=== PATIENT | male | born 1985 | race Caucasian/White ===

== ENCOUNTER → 2022-01-30 | Outpatient (REF) | payer OTHER, MEDICAID | LOC: M LAB REF 14:48 | PROVIDERS: ATTEND Surgery | DX: L72.11 Pilar cyst (principal) ==

== ENCOUNTER 2023-08-22 01:10 | Inpatient (IN) | payer MEDICAID, OTHER ==
[~2023-08-22] VITALS: Ht 180.3 cm; Wt 87.2 kg
[2023-08-22 02:03] LABS: HEMOGLOBIN 15.6 g/dl (13.5-17.5); MEAN CORPUSCULAR HEMOGLOBIN 29.5 pg (27.0-33.0); MEAN CORPUSCULAR HGB CONC 34.7 g/dl (32.0-36.5); MEAN CORPUSCULAR VOLUME 85.1 fl (80.0-96.0); PLATELET COUNT, AUTOMATED 265 10^3/uL (150-450); RED BLOOD COUNT 5.29 10^6/uL (4.30-6.10); WHITE BLOOD COUNT 14.4 10^3/uL (4.0-10.0)
[2023-08-22 02:15] LABS: AMPHETAMINES LEVEL URINE NEGATIVE (NEGATIVE); BARBITURATES URINE NEGATIVE (NEGATIVE); BENZODIAZEPINES URINE NEGATIVE (NEGATIVE); COCAINE METABOLITE URINE NEGATIVE (NEGATIVE); METHADONE URINE NEGATIVE (NEGATIVE); OPIATES URINE NEGATIVE (NEGATIVE); PHENCYCLIDINE URINE NEGATIVE (NEGATIVE)
[2023-08-22 02:17] LABS: ETHYL ALCOHOL (ETHANOL) < 0.003 % (0.000-0.010)
[2023-08-22 02:19] LABS: ALBUMIN 4.8 G/DL (3.2-5.2); ALKALINE PHOSPHATASE 99 U/L (46-116); ALT/SGPT 67 U/L (7.0-40); AST/SGOT 141 U/L (<34); BILIRUBIN,DIRECT 0.5 MG/DL (<0.4); BILIRUBIN,TOTAL 1.3 MG/DL (0.3-1.2); BLOOD UREA NITROGEN 15 MG/DL (9-23); CALCIUM LEVEL 9.6 MG/DL (8.5-10.1); CARBON DIOXIDE LEVEL 24 MMOL/L (20-31); CHLORIDE LEVEL 106 MMOL/L (98-107); CREATININE FOR GFR 0.94 MG/DL (0.70-1.30); GLOMERULAR FILTRATION RATE > 60.0 (>60); GLUCOSE, FASTING 92 MG/DL (60-100); POTASSIUM SERUM 3.8 MMOL/L (3.5-5.1); SALICYLATE LEVEL < 3.0 MG/DL (<30); SODIUM LEVEL 139 MMOL/L (136-145); TOTAL PROTEIN 7.4 G/DL (5.7-8.2)
[2023-08-22 02:21] LABS: THYROID STIMULATING HORMONE 1.319 uIU/ML (0.55-4.78)
[2023-08-22 02:30] LABS: CANNABINOIDS URINE POSITIVE (NEGATIVE)
[2023-08-22] MEDS ORDERED: OMEP40CA5 PO (04:39)
[2023-08-22] MEDS ORDERED: BREO1INH INH (04:39)
[2023-08-22] MEDS ORDERED: ALBU8.5H INH (04:39)
[2023-08-22] MEDS ORDERED: MONT10TA97 PO (04:39)
[2023-08-22] MEDS ORDERED: HOME MED LIST COMPLETE! XX SCH (04:40)
[2023-08-22] MEDS ORDERED: IBUPROFEN 400MG TAB PO PRN (13:30)
[2023-08-22] MEDS ORDERED: MAALOX 30 ML SUSP *UDC PO PRN (13:30)
[2023-08-22] MEDS ORDERED: diphenhydrAMINE 25MG CAP PO PRN (13:30)
[2023-08-22] MEDS ORDERED: MOM 30ML SUSPENSION UDC PO PRN (13:30)
[2023-08-22] MEDS ORDERED: OLANZapine ORAL DISINTEGRATING TAB 5MG PO PRN (13:30)
[2023-08-22 14:54] LABS: HEPATITIS B SURFACE ANTIGEN NEGATIVE (NEGATIVE)
[2023-08-22 16:15] LABS: HEPATITIS C VIRUS ABY INDEX < 0.02 INDEX (<0.8)
[2023-08-22 16:22] LABS: HEPATITIS B CORE ANTIBODY IGM NEGATIVE (NEGATIVE)
[2023-08-22 16:34] VITALS: BP 122/90; TEMP 97.1; O2SAT 99
[2023-08-22 16:48] VITALS: BP 122/90; TEMP 97.1; O2SAT 99
[2023-08-22] MEDS: traZODone 50 MG TAB PO PRN (21:32)
[2023-08-22] MEDS: ACETAMINOPHEN TAB 650MG DOSE (2X325MG) PO PRN (21:32)
[2023-08-23 06:17] VITALS: BP 138/92; TEMP 97.2; O2SAT 99
[2023-08-23 16:10] VITALS: BP 135/89; TEMP 97; O2SAT 100
[2023-08-23] MEDS ORDERED: ALBUTEROL 90 MCG/ACT 8GM HFA INHALER INH PRN (18:55)
[2023-08-23] MEDS: MONTELUKAST 10 MG TAB PO SCH (19:04)
[2023-08-23] MEDS: SYMBICORT 160/4.5MCG INHALER 6GM INH SCH (19:06)
[2023-08-24 06:55] VITALS: BP 125/72; TEMP 98.4; O2SAT 100
[2023-08-24] MEDS: OMEPRAZOLE 20MG CAP PO SCH (08:22)
[2023-08-24 16:02] VITALS: BP 137/82; TEMP 96.9; O2SAT 100
[2023-08-24 16:59] VITALS: BP 137/82; TEMP 96.9; O2SAT 100
[2023-08-25 06:50] VITALS: BP 110/63; TEMP 97.4; O2SAT 100
[2023-08-25 18:00] VITALS: BP 145/71; TEMP 97.3
[2023-08-26 06:00] VITALS: BP 128/72; TEMP 98.1; O2SAT 98
[2023-08-26 16:31] VITALS: BP 145/82; TEMP 97.3; O2SAT 98
[2023-08-27 06:24] VITALS: BP 140/76; TEMP 98.2; O2SAT 99
== END 2023-08-27 13:32 | disposition home or self-care (01) | DRG 751 ==
LOC: M ED 01:10 → M ED INP 13:28 → M PSY 15:41
PROVIDERS: ADMIT Student in an Organized Health Care Education/Training Program; ATTEND Student in an Organized Health Care Education/Training Program
DX: F29 Unspecified psychosis not due to a substance or known physiological condition (principal); F79 Unspecified intellectual disabilities; F60.0 Paranoid personality disorder; Z91.148 Patient's other noncompliance with medication regimen for other reason; F60.1 Schizoid personality disorder; Z79.899 Other long term (current) drug therapy; J45.909 Unspecified asthma, uncomplicated; K21.9 Gastro-esophageal reflux disease without esophagitis; F12.90 Cannabis use, unspecified, uncomplicated

== ENCOUNTER 2024-02-01 22:24 | Inpatient (IN) | payer MEDICAID ==
[~2024-02-01] VITALS: Ht 180.3 cm; Wt 89.7 kg
[~2024-02-01 22:24] MED LIST: ALBU8.5H INH; BREO1INH INH; MONT10TA97 PO; OMEP40CA5 PO
[2024-02-01 23:24] LABS: BASO # 0.1 10^3/uL (0.0-0.2); EOS # 0.3 10^3/uL (0.0-0.5); EOS % 3.4 % (0.0-3.0); HEMOGLOBIN 15.5 g/dl (13.5-17.5); LYMPH # 2.2 10^3/uL (1.5-5.0); LYMPH % 28.7 % (24.0-44.0); MEAN CORPUSCULAR HEMOGLOBIN 29.9 pg (27.0-33.0); MEAN CORPUSCULAR HGB CONC 35.2 g/dl (32.0-36.5); MEAN CORPUSCULAR VOLUME 84.8 fl (80.0-96.0); MONO # 0.6 10^3/uL (0.0-0.8); NEUTROPHILS # 4.5 10^3/uL (1.5-8.5); NEUTROPHILS % 58.6 % (36.0-66.0); PLATELET COUNT, AUTOMATED 319 10^3/uL (150-450); RED BLOOD COUNT 5.19 10^6/uL (4.30-6.10); WHITE BLOOD COUNT 7.6 10^3/uL (4.0-10.0)
[2024-02-01 23:48] LABS: BARBITURATES URINE NEGATIVE (NEGATIVE); BENZODIAZEPINES URINE NEGATIVE (NEGATIVE); COCAINE METABOLITE URINE NEGATIVE (NEGATIVE); METHADONE URINE NEGATIVE (NEGATIVE); OPIATES URINE NEGATIVE (NEGATIVE); PHENCYCLIDINE URINE NEGATIVE (NEGATIVE)
[2024-02-01 23:51] LABS: ETHYL ALCOHOL (ETHANOL) 0.003 % (0.000-0.010)
[2024-02-01 23:52] LABS: AMPHETAMINES LEVEL URINE POSITIVE (NEGATIVE); CANNABINOIDS URINE POSITIVE (NEGATIVE); CPK CREATINE PHOSPHOKINASE 129 U/L (46-171); SALICYLATE LEVEL < 3.0 MG/DL (<30)
[2024-02-01 23:53] LABS: ALBUMIN 4.2 G/DL (3.2-5.2); ALKALINE PHOSPHATASE 107 U/L (40-129); ALT/SGPT 48 U/L (7.0-40); AST/SGOT 20 U/L (<34); BILIRUBIN,DIRECT 0.3 MG/DL (<0.4); BILIRUBIN,TOTAL 0.6 MG/DL (0.3-1.2); BLOOD UREA NITROGEN 21 MG/DL (9-23); CALCIUM LEVEL 9.5 MG/DL (8.5-10.1); CARBON DIOXIDE LEVEL 26 MMOL/L (20-31); CHLORIDE LEVEL 105 MMOL/L (98-107); CREATININE FOR GFR 0.99 MG/DL (0.70-1.30); GLOMERULAR FILTRATION RATE > 60.0 (>60); GLUCOSE, FASTING 122 MG/DL (60-100); POTASSIUM SERUM 3.4 MMOL/L (3.5-5.1); SODIUM LEVEL 139 MMOL/L (136-145); TOTAL PROTEIN 7.3 G/DL (5.7-8.2)
[2024-02-01 23:54] LABS: THYROID STIMULATING HORMONE 0.903 uIU/ML (0.55-4.78)
[2024-02-02 00:08] LABS: HCG, SERUM QUALITATIVE NEGATIVE
[2024-02-02] MEDS ORDERED: diphenhydrAMINE 50MG/ML VIAL IM STA (03:33)
[2024-02-02] MEDS: LORazepam 2 MG TAB PO STA (03:59)
[2024-02-02] MEDS: diphenhydrAMINE 50MG CAP PO ONE (04:05)
[2024-02-02] MEDS ORDERED: MED REC COMMENT (07:24)
[2024-02-02] MEDS ORDERED: HOME MED LIST COMPLETE! XX SCH (07:25)
[2024-02-02] MEDS ORDERED: LORazepam 2 MG TAB PO PRN (09:40)
[2024-02-02] MEDS ORDERED: IBUPROFEN 400MG TAB PO PRN (09:40)
[2024-02-02] MEDS ORDERED: OLANZapine ORAL DISINTEGRATING TAB 5MG PO PRN (09:40)
[2024-02-02] MEDS ORDERED: MOM 30ML SUSPENSION UDC PO PRN (09:40)
[2024-02-02] MEDS: THIAMINE 100 MG TAB PO SCH (16:16)
[2024-02-02] MEDS: MULTIVITAMINS/MINERALS THERAP 1 TAB PO SCH (16:17)
[2024-02-02] MEDS: FOLIC ACID 1MG TAB PO SCH (16:17)
[2024-02-03] VITALS: BP 110/62
[2024-02-03 06:05] VITALS: BP 132/59; TEMP 97.5; O2SAT 99
[2024-02-03 15:55] VITALS: BP 128/75; TEMP 98.9; O2SAT 98
[2024-02-03] MEDS: POTASSIUM CHLORIDE 10MEQ SR TABLET PO ONE (16:21)
[2024-02-04 06:20] VITALS: BP 158/79; TEMP 98.5; O2SAT 99
[2024-02-04] MEDS: ALBUTEROL 90 MCG/ACT 8GM HFA INHALER INH PRN (08:19)
[2024-02-04 15:13] VITALS: BP 134/95; TEMP 96.8; O2SAT 100
[2024-02-04] MEDS: OLANZapine 5 MG TAB PO SCH (20:12)
[2024-02-04] MEDS: traZODone 50 MG TAB PO PRN (20:13)
[2024-02-04] MEDS: ACETAMINOPHEN 325 MG TAB PO PRN (20:13)
[2024-02-05 06:26] VITALS: BP 120/69; TEMP 98.9; O2SAT 97
[2024-02-05 15:15] VITALS: BP 161/87; TEMP 96.8; O2SAT 100
[2024-02-06 06:19] VITALS: BP 113/59; TEMP 98.4; O2SAT 95
[2024-02-06 18:00] VITALS: BP 146/90; TEMP 97.5
[2024-02-06] MEDS: OLANZapine 10 MG TAB PO SCH (20:37)
[2024-02-06] MEDS: MAALOX 30 ML SUSP *UDC PO PRN (20:37)
[2024-02-07 06:28] VITALS: BP 119/73; TEMP 98.1; O2SAT 98
[2024-02-07 16:08] VITALS: BP 136/91; TEMP 97.8; O2SAT 99
[2024-02-07] MEDS: diphenhydrAMINE 25MG CAP PO PRN (20:37)
[2024-02-08 06:45] VITALS: BP 131/71; TEMP 97.6; O2SAT 98
[2024-02-08 16:24] VITALS: BP 163/89; TEMP 97.6; O2SAT 99
[2024-02-09 06:36] VITALS: BP 125/82; TEMP 97.3; O2SAT 97
[2024-02-09 15:29] VITALS: BP 140/79; TEMP 99; O2SAT 98
[2024-02-10 06:44] VITALS: BP 126/77; TEMP 97.2; O2SAT 96
[2024-02-10 14:58] VITALS: BP 144/86; TEMP 98.8; O2SAT 99
[2024-02-10] MEDS: OLANZapine 5 MG TAB PO SCH (20:21)
[2024-02-11 06:24] VITALS: BP 127/84; TEMP 97.5; O2SAT 99
[2024-02-11 14:00] VITALS: BP 141/69; TEMP 97.2; O2SAT 100
[2024-02-12 06:34] VITALS: BP 136/91; TEMP 98.1; O2SAT 97
[2024-02-12 15:26] VITALS: BP 144/80; TEMP 97.6; O2SAT 98
[2024-02-13 06:26] VITALS: BP 134/89; TEMP 97.1; O2SAT 98
[2024-02-13] MEDS ORDERED: OLAN1TAB16 PO (11:39)
== END 2024-02-13 14:11 | disposition home or self-care (01) | DRG 750 ==
LOC: M ED 22:24 → M ED INP 02-02 09:40 → M PSY 02-02 14:34
PROVIDERS: ADMIT Psychiatry & Neurology Psychiatry; ATTEND Psychiatry & Neurology Psychiatry
DX: F20.9 Schizophrenia, unspecified (principal); R45.850 Homicidal ideations; E87.6 Hypokalemia; J45.909 Unspecified asthma, uncomplicated; Z79.899 Other long term (current) drug therapy